=== PATIENT | female | born 1965 | race Caucasian/White ===

== ENCOUNTER 2018-08-22 20:10 | Emergency (ER) | payer OTHER ==
[2018-08-22] MEDS ORDERED: Gentamicin 0.3% Ophth Soln 5 ML Bottle EYEBOTH ONE (20:11)
[2018-08-22] MEDS ORDERED: Tetracaine HCl/PF 0.5% 4 ML Bottle EYEBOTH ONE (20:11)
[2018-08-22] MEDS ORDERED: Fluorescein 1 MG Ophth Strip EYEBOTH ONE (20:11)
[2018-08-22] MEDS: Tetracaine HCl/PF 0.5% 4 ML Bottle EYELF ONE (20:30)
[2018-08-22] MEDS: Fluorescein 1 MG Ophth Strip EYELF ONE (20:30)
--- NOTE | 2018-08-22 20:55 | EDM.PDOC ---
ED HPI GENERAL MEDICAL PROBLEM - General Chief Complaint: Eye Problems Stated Complaint: FB in eye Time Seen by Provider: 08/22/18 20:25 Source of Information: Reports: Patient History Limitations: Reports: No Limitations - History of Present Illness INITIAL COMMENTS - FREE TEXT/NARRATIVE: Isis is a 52 yo female who presents to the ED with complaints of right eye pain. States she was taking out her contacts this evening and felt like she scratched her eye. Denies working around any metal. States they have been working around some wood but doesn't think she got anything in her eye. States the contact was intact when she took it out. States now it feels like something is in her eye. - Related Data Allergies Allergy/AdvReac Type Severity Reaction Status Date / Time No Known Allergies Allergy Verified 08/22/18 20:20 Home Meds: Home Meds Phenytoin Sodium Extended [Dilantin] 100 mg PO TID 08/22/18 [History] Past Medical History HEENT History: Reports: Impaired Vision Neurological History: Reports: Other (See Below) Other Neuro History: EPILEPSY - Past Surgical History GI Surgical History: Reports: Cholecystectomy Social & Family History - Tobacco Use Smoking Status *Q: Never Smoker - Caffeine Use Caffeine Use: Reports: Coffee - Alcohol Use Days Per Week of Alcohol Use: 7 Number of Drinks Per Day: 1 Total Drinks Per Week: 7 - Recreational Drug Use Recreational Drug Use: No ED ROS GENERAL - Review of Systems Review Of Systems: ROS reveals no pertinent complaints other than HPI. HEENT: Reports: Contact Lenses, Eye Pain. Denies: Eye Discharge ED EXAM GENERAL W FULL EYE - Physical Exam Exam: See Below Exam Limited By: No Limitations General Appearance: Alert, No Apparent Distress Eye Exam: Right Eye: PERRL Eyelids: Right: Normal Appearance Cornea Exam: Right: Corneal Abrasion Extraocular Movements: Right: Intact Pupils: Normal Accommodation Pupillary Reaction: Right: Brisk Comments: No foreign body noted. ED EYE w/ Add Procedure - Eye Procedure Alcaine Drops Administered: Yes Antibiotic Oinment/Drps Admin: Right Eye - Additional/Other Procedure(s) Other (Free Text) Procedure(s) [Text1]: Fluorescein stain done. No foreign body noted. Immediate relief noted with tetracaine eye drop for local anesthetic. Course - Vital Signs Last Recorded V/S: Last Vital Signs Temp 96.1 F 08/22/18 20:17 Pulse 75 04/30/19 20:17 Resp 18 08/22/18 20:17 BP 150/75 H 08/22/18 20:17 Pulse Ox 99 08/22/18 20:17 Departure - Departure Time of Disposition: 20:56 Disposition: Home, Self-Care 01 Clinical Impression: Corneal abrasion of right eye due to contact lens - Discharge Information Instructions: Corneal Abrasion, [id number] Forms: ED Department Discharge Additional Instructions: 1) Gentamicin eye drops - 1 drop to right eye 4 times a day. 2) Refrain from wearing contact while using eye drops 3) If any vision changes, loss of vision, etc... recommend returning for reevaluation or referral to state manager 4) Handout given on corneal abrasion - Problem List & Annotations (1) Corneal abrasion of right eye due to contact lens SNOMED Code(s): 970098129 Code(s): H18.821 - CORNEAL DISORDER DUE TO CONTACT LENS, RIGHT EYE Status: Acute - Problem List Review Problem List Initiated/Reviewed/Updated: Yes - Assessment/Plan Plan: Please see additional instructions.
== END 2018-08-22 21:15 | disposition home or self-care (01) ==
LOC: CC.ED 20:10
DX: H18.821 Corneal disorder due to contact lens, right eye (principal)
CPT/HCPCS: 99282; A9270